=== PATIENT | male | born 1970 | race Caucasian/White ===

== ENCOUNTER 2016-11-16 02:51 | Emergency (ER) | payer OTHER ==
[~2016-11-16] VITALS: Ht 172.7 cm; Wt 86.2 kg
[2016-11-16] MEDS ORDERED: CELEBREX 200 M200 M1 PO (03:44)
[2016-11-16 04:00] VITALS: BP 124/65
== END 2016-11-16 04:50 | disposition home or self-care (01) ==
LOC: ER 02:51
DX: S61.210A Laceration without foreign body of right index finger without damage to nail, initial encounter (principal); W26.8XXA Contact with other sharp object(s), not elsewhere classified, initial encounter; Y93.89 Activity, other specified; Y92.89 Other specified places as the place of occurrence of the external cause; Y99.0 Civilian activity done for income or pay

== ENCOUNTER 2017-04-26 10:31 | Emergency (ER) | payer BC ==
[~2017-04-26] VITALS: Ht 172.7 cm; Wt 88.5 kg
[~2017-04-26 10:31] MED LIST: CELEBREX 200 M200 M1 PO
[2017-04-26] MEDS ORDERED: XARELTO15 MG PO (12:40)
[2017-04-26 12:50] VITALS: BP 130/85
== END 2017-04-26 12:50 | disposition home or self-care (01) ==
LOC: ER 10:31
DX: I82.431 Acute embolism and thrombosis of right popliteal vein (principal); F10.99 Alcohol use, unspecified with unspecified alcohol-induced disorder

== ENCOUNTER 2019-02-12 09:48 | Emergency (ER) | payer BC ==
[~2019-02-12] VITALS: Ht 172.7 cm; Wt 88.5 kg
[~2019-02-12 09:48] MED LIST changes: +ASPIR 8181 MG PO; +XARELTO15 MG PO
[2019-02-12 10:48] LABS: ABSOLUTE NEUTROPHILS 5.2 thou/uL (1.4-8.2); BASOPHILS 0.5 % (0.0-2.0); EOSINOPHILS 0.6 % (0.0-3.0); HEMATOCRIT 43.7 % (42.0-52.0); LYMPHOCYTES 25.3 % (24.0-44.0); MCH 28.7 pg (26.0-34.0); MCHC 34.3 g/dL (28.0-37.0); MCV 83.5 fL (80.0-100.0); MONOCYTES 7.5 % (1.0-8.0); PLATELET COUNT 189 thou/uL (150-400); POLYS 66.1 % (36.0-66.0); RBC 5.23 mil/uL (4.50-6.00); RDW 13.3 % (10.5-14.5); WBC 7.8 thou/uL (4.0-11.0)
[2019-02-12 11:00] LABS: ANION GAP 11 mmol/L (7-16); BUN 17 mg/dL (7-18); CALCIUM 9.7 mg/dL (8.5-10.1); CHLORIDE 101 mmol/L (98-107); CO2 25 mmol/L (21-32); CREATININE 1.3 mg/dL (0.7-1.3); GLUCOSE 130 mg/dL (74-106); POTASSIUM 3.9 mmol/L (3.5-5.1); SODIUM 137 mmol/L (136-145)
[2019-02-12 11:13] LABS: ALBUMIN 4.1 g/dL (3.4-5.0); SGOT 34 U/L (15-37); SGPT 38 U/L (30-65); TOTAL PROTEIN 7.6 g/dL (6.4-8.2); TROPONIN-I <0.06 ng/mL (<0.06)
[2019-02-12 11:57] VITALS: BP 115/75
--- NOTE | 2019-02-12 16:53 | EKG ---
[place] [address] [facility] [place] [address] ELECTROCARDIOGRAM REPORT Name: WALLY SEGURA [id number] ������������������ Admission: 02/12/19 ������������������ Attend Phys: Discharge: 02/12/19 ������������������ Date of : 66 Report #: [id number] ����������������������������������������������������������������� [id number] THIS REPORT FOR: //name// [facility] ED Test Date: 2019-02-12 Test Time: 10:30:52 Pat Name: WALLY SEGURA Department: Room: Gender: Shactor: rlewricarda : 1970 Requested By: Cris Guzman Order Number: [id number] MD: Kyle Davidson Measurements Intervals Blunt Rate: 60 P: 61 LA: 167 QRS: 30 QRSD: 92 T: 18 QT: 404 QTc: 404 Interpretive Statements Sinus rhythm Otherwise normal tracing No previous ECG available for comparison Electronically Signed On 02-12-2019 16:53:24 CDT by Kyle Davidson [email or web address] ��������������������������������������������� <ELECTRONICALLY SIGNED> ���������������������������������������� By: Kyle Davidson MD, [facility] ��������������������������������������������� 02/12/19 1653 1030 1030 Kyle Davidson MD, FACC /EPI
== END 2019-02-12 11:58 | disposition home or self-care (01) ==
LOC: ER 09:48
PROVIDERS: Emergency Medicine
DX: R42 Dizziness and giddiness (principal); R06.00 Dyspnea, unspecified; Z86.718 Personal history of other venous thrombosis and embolism